=== PATIENT | female | born 1960 | race American Indian/Alaskan Native ===

== ENCOUNTER 2018-07-16 06:24 | Emergency (ER) | payer OTHER ==
--- NOTE | 2018-07-16 06:38 | C.PDOC ---
History Of Present Illness Patient states that she woke up with her heart beating very fast. No f/c/n/v. Speaking in complete sentences.No chest pain or shortness of breath. Also states she had a cyst removed from her right side of neck 2 days ago Time Seen by Provider: 07/16/18 06:37 Chief Complaint (Nursing): Palpitations History Per: Patient History/Exam Limitations: no limitations Onset/Duration Of Symptoms: Hrs Current Symptoms Are (Timing): Better Severity: Moderate Pain Scale Rating Of: 4 Reports Recently: Treated By A Physician Recent travel outside of the [place]: No Additional History Per: Family Past Medical History Reviewed: Historical Data, Nursing Documentation, Vital Signs Vital Signs: Last Vital Signs Temp 97.9 F 07/16/18 06:29 Pulse 90 07/16/18 06:29 Resp 14 07/16/18 06:29 BP 196/100 H 07/16/18 06:29 Pulse Ox 99 07/16/18 06:29 - Medical History PMH: HTN Family History: States: No Known Family Hx - Social History Hx Alcohol Use: Yes Hx Substance Use: No Review Of Systems Constitutional: Negative for: Fever, Chills Eyes: Negative for: Redness ENT: Negative for: Throat Pain Cardiovascular: Positive for: Palpitations. Negative for: Chest Pain Respiratory: Negative for: Shortness of Breath Gastrointestinal: Negative for: Nausea, Vomiting, Abdominal Pain Genitourinary: Negative for: Dysuria Musculoskeletal: Negative for: Back Pain Skin: Negative for: Rash Neurological: Negative for: Weakness Psych: Negative for: Anxiety Physical Exam - Physical Exam Appears: Non-toxic, No Acute Distress Skin: Warm, Dry Eye(s): bilateral: Normal Inspection Oral Mucosa: Moist Neck: Supple, Other (right sided incision c&d) Chest: Symmetrical Cardiovascular: Rhythm Regular Respiratory: No Rales, No Rhonchi, No Wheezing Gastrointestinal/Abdominal: Soft, No Tenderness, No Distention Back: Normal Inspection Extremity: Normal ROM Extremity: Bilateral: Atraumatic Neurological/Psych: Oriented x3 Gait: Steady ED Course And Treatment ECG: Interpreted By Me, Viewed By Me ECG Rhythm: Sinus Tachycardia (116), Nonspecific Changes O2 Sat by Pulse Oximetry: 99 Pulse Ox Interpretation: Normal - Radiology CXR: Interpreted by Me, Viewed By Me Disposition Counseled Patient/Family Regarding: Studies Performed, Diagnosis - Disposition Disposition Time: 07:00 Condition: FAIR Forms: [facility] (Greenlandic) - Clinical Impression Clinical Impression: Palpitations Physician Patient Turnover Patient Signed Over To: America Jacobson Handoff Comments: pending labs, re-eval and dispostion
[2018-07-16 06:52] VITALS: TEMP 97.9
[2018-07-16 07:04] LABS: BASO % 0.9 % (0.0-2.0); EOS # 0.3 K/uL (0.0-0.7); HEMOGLOBIN 14.1 g/dL (11.0-16.0); LYMPH # 1.4 K/uL (1.0-4.3); LYMPH % 47.1 % (20.0-40.0); MEAN CELL VOLUME 95.9 fL (81.0-99.0); MEAN CORPUSCULAR HEMOGLOBIN 32.4 pg (27.0-31.0); MEAN CORPUSCULAR HGB CONC 33.7 g/dL (33.0-37.0); MEAN PLATELET VOLUME 9.4 fL (7.2-11.7); MONO # 0.4 K/uL (0.0-0.8); NEUT # 0.8 K/uL (1.8-7.0); NRBC % 0.1 % (0.0-2.0); RBC 4.35 Mil/uL (3.80-5.20); RED CELL DISTRIBUTION WIDTH 13.9 % (11.5-14.5)
[2018-07-16 07:16] LABS: PROTHROMBIN TIME 10.8 SECONDS (9.7-12.2)
[2018-07-16 08:36] LABS: ALBUMIN 4.3 g/dL (3.5-5.0); ALT/SGPT 12 U/L (9-52); AST/SGOT 32 U/L (14-36); BLOOD UREA NITROGEN 19 mg/dL (7-17); CALCIUM 9.2 mg/dl (8.6-10.4); GFR NON-AFRICAN AMERICAN 57
[2018-07-16 09:17] VITALS: O2SAT 100
[2018-07-16 09:23] LABS: SQUAMOUS EPITHIAL 8 /hpf (0-5); URINE BACTERIA RARE (<OCC); URINE BILIRUBIN NEGATIVE (NEGATIVE); URINE BLOOD 1+ (NEGATIVE); URINE CLARITY Clear (Clear); URINE COLOR Yellow (YELLOW); URINE GLUCOSE (UA) NORMAL (Normal); URINE LEUKOCYTE ESTERASE NEG Leu/uL (Negative); URINE PROTEIN NEGATIVE (NEGATIVE); URINE UROBILINOGEN NORMAL mg/dL (0.2-1.0)
[2018-07-16 11:10] VITALS: BP 126/72; PULSE 59; RESP 14
--- NOTE | 2018-07-16 11:19 | RAD ---
HISTORY: Palpations COMPARISON: None available TECHNIQUE: Chest, one view. FINDINGS: Patient slightly rotated. LUNGS: No focal consolidation. Please note that chest x-ray has limited sensitivity for the detection of pulmonary masses. PLEURA: No significant pleural effusion identified. No definite pneumothorax . CARDIOVASCULAR: Heart size appears within normal limits. Prominence of the mediastinum may be related to tortuous aorta. Ectasia. Atherosclerotic calcifications of the aorta. OSSEOUS STRUCTURES: No acute osseous abnormality identified. VISUALIZED UPPER ABDOMEN: Unremarkable. OTHER FINDINGS: None. IMPRESSION: Prominence of the mediastinum may be related to tortuous aorta and patient obliquity. Alternatives including adenopathy not excluded. If indicated, repeat chest PA and lateral may be considered for further evaluation. No focal consolidation. Study marked for PA review.
== END 2018-07-16 11:19 | disposition home or self-care (01) ==
LOC: C.ER 06:24
DX: R00.2 Palpitations (principal); I10 Essential (primary) hypertension